=== PATIENT | female | born 1970 | race Caucasian/White ===

== ENCOUNTER → 2019-03-10 | Outpatient (CLI) | payer BC ==
--- NOTE | 2019-03-31 14:20 | MM ---
Reason for exam: screening (asymptomatic). Last mammogram was performed 3 months ago. History: Patient is postmenopausal. Family history of breast cancer in paternal aunt at age 70. Physical Findings: A clinical breast exam by your physician is recommended on an annual basis and results should be correlated with mammographic findings. MG 3D Screening Mammo W/Cad Bilateral CC and MLO view(s) were taken. Prior study comparison: November 26, 2018, mammogram. March 26, 2013, mammogram. The breast tissue is extremely dense which could obscure a lesion on mammography. Finding: There are round, regional and grouped calcifications in the right breast. Increased group of indeterminate calcifications middle posterior depth upper central aspect. ASSESSMENT: Incomplete: need additional imaging evaluation, BI-RAD 0 RECOMMENDATION: Special view mammogram of the right breast. [facility] will attempt to contact patient to return for supplemental views.
== END | disposition home or self-care (01) ==
LOC: RADMAMWWP 12:09
PROVIDERS: ATTEND Family Medicine
DX: Z12.31 Encounter for screening mammogram for malignant neoplasm of breast (principal)
CPT/HCPCS: 77063; 77067

== ENCOUNTER → 2019-04-19 | Outpatient (CLI) | payer BC ==
--- NOTE | 2019-04-20 09:25 | MM ---
Reason for exam: additional evaluation requested from abnormal screening. Last mammogram was performed 1 month ago. History: Patient is postmenopausal. Family history of breast cancer in paternal aunt at age 70. Physical Findings: Nurse did not find any significant physical abnormalities on exam. MG 3D Work Up W/Cad RT CC with magnification, LM with magnification, and LM view(s) were taken of the right breast. Prior study comparison: March 10, 2019, bilateral MG 3d screening mammo w/cad. November 26, 2018, mammogram. Finding: There are indeterminate, fine, milk of calcium calcifications in the 11-12 o'clock upper quadrant, middle position of the right breast. New finding. These results were verbally communicated with the patient and result sheet given to the patient on 04/19/19. ASSESSMENT: Suspicious, BI-RAD 4 RECOMMENDATION: Stereotactic core biopsy of the right breast. (11-12 o'clock calcifications) Called Dr. Becerra's office with mammographic findings. Biopsy scheduled for 05/07/19 at 8:00. PRELIMINARY REPORT CALLED AND FAXED TO DR. BECERRA ON 04/20/19.
== END | disposition home or self-care (01) ==
LOC: RADMAMWWP 14:15
PROVIDERS: ATTEND Family Medicine
DX: R92.8 Other abnormal and inconclusive findings on diagnostic imaging of breast (principal)
CPT/HCPCS: 77061; 77065

== ENCOUNTER → 2019-04-28 | Outpatient (CLI) | payer BC ==
[2019-04-28 16:05] VITALS: BP 131/84; PULSE 75; RESP 18; TEMP 98.6
--- NOTE | 2019-04-28 16:53 | P.GSHP ---
History of Present Illness H&P Date: 04/28/19 Chief Complaint: mammographic abnormality right breast Anahi is a 49-year-old white female seen in consultation for Dr. Nayana Osborne regarding microcalcifications of concern in the right breast. The patient on [id number] underwent a bilateral mammogram. This revealed some grouped calcifications in the right breast and increased indeterminant calcifications in the middle posterior depth upper central area. [place] [id number]. This confirmed indeterminant calcifications in the left at 12:00 upper quadrant middle position of the right breast stereotactic core biopsy was recommended. The patient's last mammogram prior to this was in 2016. She has not felt anything of concern in her breasts. She is not complaining of any pain in her breasts. No nipple discharge or skin changes. No recent infection or trauma to the breast. She's never had a biopsy in the past. Patient states following the mammogram she does have some soreness of both breast, this is been persistent since February. And has not improved. The patient did have bilateral mastitis [id number] years ago, and they considered removing both breasts. It did resolve however. The patient drinks 10 cups of coffee/day, she does not drink pop. She does not smoke and is not exposed to second hand smoke. She does not eat chocolate. Family History: paternal aunt: bilateral breast cancer maternal aunt: lung cancer smoker paternal grandfather: skin cancer Hormonal History: menarche: 18 breast fed: yes, first born at 30 periods: partial hysterectomy at 43 BCP: 10 years hormones: none surgical history: Hysterectomy for fibroid tumors and (1/4 of one ovary left and 1/2 of other ovary left) left knee surgery medical history: Negative Social history: Smoke: Negative Alcohol: Negative Drugs: Negative - Constitutional Constitutional: Denies chills, Denies fever - EENT Comment: nodule on thyroid Eyes: denies blurred vision, denies pain Ears: bilateral: tinnitus, deny: decreased hearing Ears, nose, mouth and throat: Denies headache, Denies sore throat - Breasts Breasts: bilateral: as per HPI - Cardiovascular Cardiovascular: Reports chest pain, Denies shortness of breath - Respiratory Respiratory: Denies cough, Denies 7 - Gastrointestinal Gastrointestinal: Denies abdominal pain, Denies diarrhea, Denies nausea, Denies vomiting - Genitourinary (Female) Genitourinary: Denies dysuria, Denies hematuria - Menstruation Menstruation: Reports post hysterectomy - Musculoskeletal Musculoskeletal: Denies myalgias - Integumentary Integumentary: Denies pruritus, Denies rash - Neurological Neurological: Denies numbness, Denies weakness - Psychiatric Psychiatric: Reports anxiety - Endocrine Endocrine: Denies fatigue, Denies weight change - Hematologic/Lymphatic Comment: none - Allergic/Immunologic Allergic/Immunologic: Reports seasonal allergies Past Medical History Past Medical History: No Reported History History of Any Multi-Drug Resistant Organisms: None Reported Past Surgical History: Hysterectomy Additional Past Surgical History / Comment(s): Left knee realignment surgery Additional Past Anesthesia/Blood Transfusion Reaction / Comment(s): difficult to awaken after anesthesia Past Psychological History: No Psychological Hx Reported Smoking Status: Never smoker Past Alcohol Use History: Rare Past Drug Use History: None Reported - Past Family History Father Family Medical History: Hypertension Medications and Allergies Home Medications Medication Instructions Recorded Confirmed Type No Known Home Medications 04/21/19 04/28/19 History Allergies Allergy/AdvReac Type Severity Reaction Status Date / Time No Known Allergies Allergy Verified 04/28/19 15:56 Surgical - Exam Vital Signs Temp Pulse Resp BP Pulse Ox 98.6 F 75 18 131/84 100 04/28/19 15:57 04/28/19 15:57 04/28/19 15:57 04/28/19 15:57 04/28/19 15:57 BMI 23.4 - General well developed, well nourished, no distress - Eyes normal ocular movement, no icteric - ENT fullness of hte thyroid without discrete mass no hearing loss, no congestion - Neck no masses, trachea midline - Respiratory normal respiratory effort, clear to auscultation - Cardiovascular Rhythm: regular Heart Sounds: normal: S1, S2 - Abdomen Abdomen: soft, non tender, no guarding, no rigid, no rebound - Integumentary normal turgor nevus lateral aspect of left breast which is worrisome for the patient has increased in size Nevus dark right upper arm for which excision is recommended The patient has multiple other nevi which are followed tattoo back - Neurologic no disoriented, no combative - Musculoskeletal normal gait, normal posture - Psychiatric oriented to time, oriented to person, oriented to place, speech is normal, memory intact breast exam: right breast: multiple positional exam dense fibrocystic breast disease tissue, larger than on the left side, tender to palpation Right axilla: No adenopathy of concern Left breast: Multi-positional exam no dominant masses or nodules of concern, dense fibrocystic changes Left axilla: No adenopathy of concern Results mammogram results reviewed Assessment and Plan Assessment: Impression: 1. Mammographic abnormality right breast 2. Dense fibrocystic breast disease probably related to caffeine intake 3. Nevi of concern left lateral breast, right arm 4. Patient status post partial hysterectomy 5. family history of cancer 6. breast pain probably related to fibrocystic disease Plan: 1. Patient counseled on decreasing caffeine intake 2. Stereotactic core biopsy of the right breast 3. Excision of nevi left breast and right arm 4. skin lesions to remove Cc: Dr. Nayana Osborne We have discussed a sterotatic core biopsy risks and benefits. We have also discussed the caffeine can exacerbate fibrocystic disease. Patient understands she will attempt to decrease her caffeine intake. She has been scheduled for stero biopsy. Encounter 30 minutes > 50% of time spent in counselling and planning. Time with Patient: Greater than 30
== END | disposition home or self-care (01) ==
LOC: WWCWWP 14:28
PROVIDERS: ATTEND Surgery
DX: Z53.9 Procedure and treatment not carried out, unspecified reason (principal)

== ENCOUNTER → 2019-05-07 | Day surgery (SDC) | payer BC ==
[2019-05-07 07:26] VITALS: RESP 16
[2019-05-07 08:34] VITALS: BP 113/75; PULSE 76; TEMP 98.2
--- NOTE | 2019-05-07 09:02 | MM ---
EXAMINATION TYPE: MG stereo VAD BX RT DATE OF EXAM: 05/07/2019 COMPARISON: Prior mammogram April 19, 2019 and older studies CLINICAL HISTORY: Abnormal mammogram. TECHNIQUE: Stereotactic guided core biopsy of right breast with clip placement. Diagnostic two-view m ammogram.. FINDINGS: The procedure of stereotactic guided core biopsy was explained to the patient. Benefits, a lternatives, and risks were discussed. An informed consent was then obtained. Preprocedure mammograms were reviewed. There are increasing scattered and regional calcifications in the right breast upper outer quadrant on background dense tissue. Significant layering is noted but s ampling is desired by ordering surgeon. [facility] pathway for biopsy was chosen. Shortness pathw ay was lateral approach. I performed the localization, then performed the remainder of the procedure. A vacuum assisted biopsy gun was used to obtain multiple core samples. The area targeted showed les s layering versus the less suspicious nearby group. The patient tolerated the procedure well without any immediate complication. The patient was kept in the radiology department for short stay after the procedure and then discharged home in stable condi tion. Targeted calcifications are identified in specimen mammogram. Post biopsy mammogram shows the clip to appear in satisfactory position relative to the targeted area of concern on the preprocedure images. IMPRESSION: SUCCESSFUL, UNCOMPLICATED STEREOTACTIC GUIDED CORE BIOPSY OF AREA OF CONCERN IN THE RIGHT BREAST, FUL L PATHOLOGY RESULTS TO FOLLOW. Low index of suspicion noted at time of procedure. Layering is present suggesting benign milk of calc ium.
== END ==
LOC: RADMAMWWP 06:48
PROVIDERS: ATTEND Surgery
DX: N60.21 Fibroadenosis of right breast (principal); R92.1 Mammographic calcification found on diagnostic imaging of breast; N60.11 Diffuse cystic mastopathy of right breast; N60.41 Mammary duct ectasia of right breast; N62 Hypertrophy of breast; R92.8 Other abnormal and inconclusive findings on diagnostic imaging of breast
CPT/HCPCS: 88305; 19081; A4648; J2001

== ENCOUNTER → 2019-05-14 | Outpatient (CLI) | payer BC ==
[2019-05-14 07:49] VITALS: BP 127/82; PULSE 83; RESP 16; TEMP 98.5
--- NOTE | 2019-05-14 08:55 | P.PN ---
Subjective Progress Note Date: 05/14/19 Principal diagnosis: Stereotactic core biopsy results Anahi is a 49-year-old white female status post stero core biopsy on 05-07-19. Pathology revealed fibrocystic changes including sclerosing adenosis with calcifications, columnar cell hyperplasia, fibrosis, cyst, and duct ectasia. The patient has no complaints related to the biopsy. Of importance is the fact that the patient was complaining of breast soreness and was drinking 10 cups of caffeinated coffee per day. She has stopped that completely. At the present time she has not noted improvement in the breast pain however she has only been off the coffee for approximately 2 weeks. Objective - Vital Signs Vital signs: Vital Signs Temp 98.5 F 05/14/19 07:45 Pulse 83 05/14/19 07:45 Resp 16 05/14/19 07:45 BP 127/82 05/14/19 07:45 Pulse Ox 98 05/14/19 07:45 Intake & Output 05/13/19 05/14/19 05/14/19 18:59 06:59 18:59 Weight 61.235 kg - Exam BMI 23.2 - Constitutional General appearance: Present: average body habitus - EENT Eyes: Present: EOMI ENT: Present: hearing grossly normal - Respiratory Respiratory: left: CTA - Cardiovascular Rhythm: regular Heart sounds: normal: S1, S2 - Musculoskeletal Musculoskeletal: Present: gait normal - Psychiatric Psychiatric: Present: A&O x's 3, appropriate affect, intact judgment & insight - Additional findings Additional findings: Biopsy site right breast clean and dry Assessment and Plan Assessment: Impression: 1. Status post stereotactic core biopsy right breast pathology benign 2. Fibrocystic breast changes 3. Mastodynia 4. 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 Skin nevi right shoulder, left breast for excision Plan: 1. Excision of skin nevi 2. Continue to stay off the caffeine 3. Repeat right breast mammogram in 6 months with physician exam at that time Encounter 15 minutes, > 50% spent in counselling and planning CC:Dr. Melendez
== END | disposition home or self-care (01) ==
LOC: WWCWWP 07:39
PROVIDERS: ATTEND Surgery
DX: Z53.9 Procedure and treatment not carried out, unspecified reason (principal)

== ENCOUNTER → 2019-06-10 | Outpatient (CLI) | payer BC ==
[2019-06-10 09:11] VITALS: BP 126/80; PULSE 65; RESP 18; TEMP 98.1
--- NOTE | 2019-06-10 09:58 | P.OP ---
Date of Procedure: 06/10/19 Preoperative Diagnosis: 4 skin nevi of concern Postoperative Diagnosis: same Procedure(s) Performed: Excision of 4 skin nevi Anesthesia: local Overnight Cashier #1: Luiza Styles Estimated Blood Loss (ml): 1 Pathology: other (skin lesions) Condition: stable Disposition: same day Indications for Procedure: Dark nevi, increasing in size Operative Findings: Dark skin nevi Description of Procedure: Anahi is a 49-year-old white female who presents for excision of skin nevi. Upon examination today 4 nevi of concern were noted, two on her posterior right shoulder near her bra line and one on her right upper arm which were recommended to be excised. Additionally there was a nevus noted on her left breast for excision. The areas on the right posterior shoulder were addressed initially. The areas were prepped using Betadine. 1% lidocaine was used to anesthetize the areas of concern. Wide excision was performed. Skin was closed using a nylon suture. The posterior lesion was 8 mm in size the anterior lesion was likewise 8 mm in size. The area of the right arm was patched next. The skin was prepped using Betadine. 1% lidocaine was used to anesthetize the area of concern. Wide excision was performed. Skin was closed using a nylon suture. Lesion was 8 mm in size. The area on the left breast was then approached the skin was prepped using Betadine. 1% lidocaine was used to anesthetize the area of concern. Wide excision was performed. Skin was closed using nylon suture. The lesion was 1.5 cm. Instruments were changed appropriately between lesions. Patient tolerated excision of all lesions in stable condition. Sterile dressings were applied. Lesions were sent for pathology. Patient will follow up in 1 week for pathology results.
== END | disposition home or self-care (01) ==
LOC: WWCWWP 08:46
PROVIDERS: ATTEND Surgery
DX: D22.5 Melanocytic nevi of trunk (principal); D22.61 Melanocytic nevi of right upper limb, including shoulder
CPT/HCPCS: 88305